=== PATIENT | male | born 1955 | race Caucasian/White ===

== ENCOUNTER 2021-05-04 14:06 | Emergency (ER) | payer OTHER, SELFPAY ==
[2021-05-04 14:12] VITALS: BP 105/83; PULSE 82; RESP 18; TEMP 36.8; O2SAT 98
--- NOTE | 2021-05-04 14:15 | DI.RAD_ITS ---
Exam(s) XR THUMB RT EXAM: XR THUMB RT CLINICAL HISTORY: thumb injury. TECHNIQUE: 2D digital imaging was performed. COMPARISON: No exams were available for comparison FINDINGS: BONES: No comminuted fracture involving the entire distal phalanx of the thumb. Separation of fractu re fragments and involvement of the articular surface. No bony destructive lesion is seen. JOINTS: No dislocation present. Degenerative changes of the interphalangeal joint and 1st carpometac arpal joint as well as metacarpophalangeal joints. SOFT TISSUE: Swelling around the thumb. No foreign body IMPRESSION: Comminuted intra-articular fracture of the distal phalanx of the thumb. DATA REPOSITORY: RADIATION DOSE DELIVERED:
--- NOTE | 2021-05-04 15:56 | W.ED.GENAD ---
Discharge Plan Disposition Patient Disposition: HOME Condition: Stable Discharge Details Clinical Impression: Fracture of distal phalanx of right thumb Primary Care Provider: Unknown,Unknown ED Provider: Trevon Leon Home Meds and New Rx's Prescriptions: New cephalexin 500 mg capsule 500 mg PO BID Qty: 10 RF: 0 Discharge Instructions Instructions: Thumb Fracture (ED) Referrals: [facility] [Provider Group] Discharge Data Discharge Date/Time-TO BE ENTERED AT DEPARTURE: 05/04/21 16:16 Medical Decision Making 65-year-old male with crush injury to his right thumb 2 days ago, attempted to melany the area of swelling to relieve pressure on his own, here with persistent pain and swelling. Concern for fracture. X-ray of the thumb was reviewed and interpreted by radiology: Comminuted intra-articular fracture of the distal phalanx of the thumb. Given potential for infection with open wound, I will initiate treatment with Keflex. Fiberglass volar splint was applied by me, patient neurovascular intact post splint application. Patient was encouraged to follow-up with orthopedics. Usual customary discharge instructions were reviewed with the patient. HPI General Mode of arrival: ambulatory. Date/Time Provider Initiated Documentation: 05/04/21 14:40. Limitations to Documentation: no limitations. Information obtained by: patient. HPI Narrative: 65-year-old male presents with chief complaint of right thumb injury. Patient notes 2 days ago he injured his thumb while splitting wood. He sustained a crush injury to distal thumb. He had severe pain and associated swelling. He states he cut into area of swelling to release pressure. Pain is now moderate and worse on palpation. Patient denies associated numbness tip of his thumb. Related Data Home Medications Medication Instructions Recorded Confirmed cephalexin 500 mg PO BID #10 cap 05/04/21 Previous Rx's Medication Instructions Recorded cephalexin 500 mg PO BID #10 cap 05/04/21 Allergies Allergy/AdvReac Type Severity Reaction Status Date / Time divalproex sodium Allergy Anaphylaxis Unverified 05/04/21 14:16 General Stated Complaint: Trauma OFELIA: 3 Review of Systems Musculoskeletal Musculoskeletal: Reports as per HPI Neurologic Neurologic: Reports as per HPI [facility] Social History Smoking/Tobacco Use Status: Current every day Tobacco Type: cigarettes Smoking risk assessment performed?: Yes Alcohol Intake: former Drug use: Daily Substance use type: marijuana Do you feel safe at home: Yes Do you feel safe in your relationship?: Yes Exam Extrem Right upper extremity: hand Details: normal capillary refill, neuromotor exam normal, neurosensory exam normal, tenderness Location: of the thumb Location: at the distal phalanx, swelling Location: of the thumb, ecchymosis Location: of the thumb and other (able to flex dip with pain) Course Vital Signs Vital signs: Vital Signs Temperature 36.8 C 05/04/21 14:12 Pulse 82 05/04/21 14:12 Respiratory Rate 18 05/04/21 14:12 Blood Pressure 105/83 05/04/21 14:12 Pulse Oximetry 98 05/04/21 14:12 Temperature 36.8 C 05/04/21 14:12 Temperature Source Temporal Artery Scan 05/04/21 14:12 Pulse 82 05/04/21 14:12 Respiratory Rate 18 05/04/21 14:12 Respiratory Effort Non-Labored 05/04/21 14:21 Respiratory Depth Normal 05/04/21 14:21 Respiratory Pattern Normal 05/04/21 14:21 Blood Pressure 105/83 05/04/21 14:12 Blood Pressure Position Sitting 05/04/21 14:12 Pulse Oximetry 98 05/04/21 14:12 Oxygen Delivery Method Room Air 05/04/21 14:12 Oxygen Flow Rate 0 05/04/21 14:12 Pain Level 7 05/04/21 14:21 Procedures Orthopedic Splinting/Casting Injury #1: Side: right Upper Extremity Injury Location: finger Upper Extremity Immobilizer: finger (other) Additional Comments: padded fiberglass splint applied without complication
[2021-05-04] MEDS: Cephalexin 500 MG CAP PO (16:05)
== END 2021-05-04 16:16 | disposition home or self-care (01) ==
PROVIDERS: Emergency Provider Student in an Organized Health Care Education/Training Program
DX: S62.521A Displaced fracture of distal phalanx of right thumb, initial encounter for closed fracture (principal); W23.0XXA Caught, crushed, jammed, or pinched between moving objects, initial encounter
CPT/HCPCS: 29125; 99283; 73140

== ENCOUNTER 2021-07-09 12:36 | Outpatient (CLI) | payer OTHER, SELFPAY ==
--- NOTE | 2021-07-09 15:45 | DI.RAD_ITS ---
Exam(s) XR THUMB RT EXAM: XR THUMB RT INDICATION: [facility] AUTH# [id number] FX DISTAL PHALANX OF RT THUMB. COMPARISON: CR XR THUMB RT from 05/04/2021 TECHNIQUE: 2D digital imaging was performed. FINDINGS: No change in alignment of comminuted intra-articular fracture at the base of the distal phalanx of th e thumb. Underlying degenerative changes. DATA REPOSITORY: RADIATION DOSE DELIVERED:
== END 2021-07-09 12:56 ==
PROVIDERS: Visit Provider Internal Medicine
DX: S62.521D Displaced fracture of distal phalanx of right thumb, subsequent encounter for fracture with routine healing (principal); W23.0XXD Caught, crushed, jammed, or pinched between moving objects, subsequent encounter
CPT/HCPCS: 73140

== ENCOUNTER 2024-06-23 01:45 | Outpatient (CLI) | payer OTHER, SELFPAY ==
--- NOTE | 2024-06-23 | DI.US_ITS ---
Exam(s) US BREAST RT COMPLETE MAMMO DIAGNOSTIC BI EXAM: MAMMO DIAGNOSTIC BI CLINICAL HISTORY: DIAGNOSTIC,RT BREAST LUMP,TENDERNESS,[id number]. COMPARISON: No exams were available for comparison TECHNIQUE: Craniocaudal and mediolateral oblique Full Field Digital Mammography views of both breast s with Computer Aided Diagnosis followed by Tomosynthesis and right breast ultrasound. FINDINGS: Mammography/Tomosynthesis: Masses/Architectural Distortion: None seen. Breast tissue development is noted in the subareolar re gion of the right breast. Minimal densities are seen in the subareolar region of the left breast. Microcalcifications: No suspicious pleomorphic-type are seen. Skin Thickening/Nipple Retraction: None. Right breast US: Echotexture: Glandular tissue development in the subareolar region consistent with gynecomastia. Shadowing: No suspicious foci. Cyst: None. Solid lesions: None seen. Ductal dilation: None. IMPRESSION: 1. No evidence of malignancy is noted. Findings are consistent with gynecomastia. BI-RADS Category 2 - Benign Findings Breast Density - Category B - Scattered areas of fibroglandular density A negative radiographic report should not delay biopsy if a dominant or clinically suspicious mass is present. Up to ten percent of cancers are not identified on mammography. A negative report may reinforce clinical impression. Adenosis and dense breasts may obscure an underlying neoplasm. False positive reports average 6 to 10%. Patient will receive a letter notifying them of these results.
== END 2024-06-23 02:05 ==
PROVIDERS: PCP Physician Assistant; Visit Provider Physician Assistant
DX: Z12.31 Encounter for screening mammogram for malignant neoplasm of breast (principal); R92.8 Other abnormal and inconclusive findings on diagnostic imaging of breast
CPT/HCPCS: 76642; 77062; 77066; G0279